=== PATIENT | female | born 1985 ===

== ENCOUNTER 2017-11-18 16:15 | Emergency (ER) | payer MEDICAID ==
[2017-11-18 16:34] VITALS: RESP 16; TEMP 98.1; O2SAT 99
--- NOTE | 2017-11-18 16:41 | ED PDOC ---
HPI: Female Pain Time Seen by Provider: 11/18/17 16:30 Chief Complaint (Nursing): Female Genitourinary History Per: Patient Onset/Duration Of Symptoms: Days (2) Current Symptoms Are (Timing): Still Present Severity: Mild Quality Of Discomfort: Cramping Associated Symptoms: denies: Nausea, Vomiting, Diarrhea, Urinary Symptoms Additional Complaint(s): Vaginal spotting assoc with lower abd cramping x 2 days. LMP July 2017 but spotted in August Ab1 Abnormal Vaginal Bleeding: Yes Past Medical History Vital Signs: Last Vital Signs Temp 98.1 F 11/18/17 16:32 Pulse 98 H 11/18/17 16:32 Resp 16 11/18/17 16:32 BP 112/69 11/18/17 16:32 Pulse Ox 99 11/18/17 16:32 - Medical History PMH: Anemia - Family History Family History: States: Unknown Family Hx - Immunization History Hx Tetanus Toxoid Vaccination: Yes Hx Influenza Vaccination: Yes Hx Pneumococcal Vaccination: Yes - Home Medications Home Medications: Ambulatory Orders Medication Instructions Recorded Vit No.126/Iron/Folic 1 tab PO DAILY 04/28/16 [Classic Tablet] Ibuprofen [Motrin Tab] 600 mg PO Q6 PRN #30 tab 04/30/16 - Allergies Allergies/Adverse Reactions: Allergies Allergy/AdvReac Type Severity Reaction Status Date / Time Latex, Natural Rubber Allergy RASH Verified 11/18/17 16:32 mayonaisse Allergy Intermediate SHORTNESS Uncoded 11/18/17 16:32 OF BREATH Review of Systems Constitutional: Negative for: Fever Gastrointestinal: Positive for: Abdominal Pain Genitourinary Female: Positive for: Vaginal Bleeding Physical Exam - Physical Exam Appears: Positive for: Non-toxic, No Acute Distress Gastrointestinal/Abdominal: Positive for: Bowel Sounds, Soft, Tenderness ( Suprapubic) Pelvic Exam: Positive for: External Exam Normal. Negative for: Blood, Mass, Tender Adnexa, Tender Uterus - Laboratory Results Result Diagrams: 11/18/17 15:50 11/18/17 15:50 - ECG O2 Sat by Pulse Oximetry: 99 Disposition - Clinical Impression Clinical Impression: Threatened miscarriage - Patient ED Disposition Is Patient to be Admitted: No - Disposition Referrals: [facility] [Outside] Disposition: Routine/Home Disposition Time: 18:02 Condition: FAIR Instructions: Threatened Miscarriage Forms: [employer] (Italian)
[2017-11-18 17:08] LABS: BASO % 0.3 % (0.0-2.0); EOS % 0.2 % (0.0-4.0); HEMOGLOBIN 12.6 g/dL (12.0-16.0); LYMPH # 0.6 K/uL (1.0-4.3); LYMPH % 11.9 % (20.0-40.0); MEAN CELL VOLUME 88.6 fl (81.0-99.0); MEAN CORPUSCULAR HEMOGLOBIN 29.5 pg (27.0-31.0); MEAN CORPUSCULAR HGB CONC 33.3 g/dL (33.0-37.0); MEAN PLATELET VOLUME 8.8 fl (7.2-11.7); MONO # 0.4 K/uL (0.0-0.8); MONO % 7.3 % (0.0-10.0); NEUT % 80.3 % (50.0-75.0); RBC 4.26 Mil/uL (3.80-5.20); RED CELL DISTRIBUTION WIDTH 12.7 % (11.5-14.5)
[2017-11-18 17:16] LABS: ALB/GLOB RATIO 1.1 (1.0-2.1); ALBUMIN 3.9 g/dL (3.5-5.0); ALT/SGPT 23 U/L (9-52); AST/SGOT 18 U/L (14-36); BLOOD UREA NITROGEN 13 mg/dl (7-17); GFR NON-AFRICAN AMERICAN > 60
--- NOTE | 2017-11-18 17:57 | US ---
Date of service: 11/18/17 OB , limited Indication: Rule out ectopic Comparison: OB 1st trimester OB ultrasound Technique: Transabdominal pelvic ultrasound Findings: Examination limited by bowel gas. There is a single intrauterine fetus present. The gestational sac measures 6.0 cm and is out of range for gestational age calculation. Yolk sac is not visualized. The crown-rump length measures 6.5 cm and is compatible with a gestational age of 12 weeks 6 days. Cervix length measures approximately 4.2 cm. There is heart motion which measured 157 BPM. Bilateral ovaries were not visualized. Impression: Limited study. Live single intrauterine with estimated gestational age 12 weeks 6 days by crown-rump length calculation. heart rate 157 bpm. Advise an anomaly screen at 16-18 weeks gestational age
[2017-11-18 18:37] VITALS: BP 115/80; PULSE 75
== END 2017-11-18 18:37 | disposition home or self-care (01) ==
LOC: H.ER 16:15
DX: O20.0 Threatened abortion (principal); Z3A.12 12 weeks gestation of pregnancy

== ENCOUNTER 2018-01-10 19:41 | Emergency (ER) | payer MEDICAID ==
--- NOTE | 2018-01-10 21:11 | OBHP ---
Datetime: 01/10/2018 20:24 IP Adm Impression: , intrauterine IP Admit Plan: Observation/Evaluation Admit Comment, IP Provider: 32 y/o @ 20 wks w/JERRY of 05/30/2018 is c/o decreased movemen t since Wednesday. Patient reports usually feeling baby move daily for the past 2 wks. She also endorses some nausea, but has been able to tolerate food. She denied any vb, ctx or loss of fluid. She denied any headache, dizziness, blurred vision, cp, shortness of breath or dysuia. OBGYNhx: x 4 1 miscarriage PMH: anemia Famhx: grandma- diabetes, no famhx of cancer Sochx: Denies tobacco, EtOH or drugs Allergies: Mayonnaise- hives; no allergies to meds Meds: PNV ROS: 12 points reviewed and negative unless otherwise states VS: 105/63, 85bpm, RR-16 Gen:laying in bed breathing comfortably Cardio: s1 s2 RRR Lungs: Resp effort wnl, no wheeze Abd: Gravid, BS + FHR-140's EXT: calves nontender A/P: 32 y/o @ 20 wks w/JERRY of 05/30/2018 is c/o decreased movement. -If NST is reactive, patient will be discharged home. -ER precautions given. Patient seen and examined with Dr. Holm -Cris Santos, , PGY-[address] Holm: I have evaluated the patient independently and I agree with the above Extremities - PN: Normal Abdomen - PN: Normal Lungs - PN: Normal Heart - PN: Normal General - PN: Normal Gestation - Est Wks by US: 20.0 Vital Signs Provider: Reviewed; Within Normal Limits IP Chief Complaint: Decreased movement
--- NOTE | 2018-01-10 21:14 | OBDCSUM ---
Datetime: 01/10/2018 20:45 Discharged to, Provider: Home Follow up at, Provider: Dr. Elliott Disch Instr Activity: Normal activity Disch Instr Diet: Regular Discharge Instructions, Provider: Routine instructions given Discharge Time: 01/10/2018 20:45 Follow up in weeks, Provider: Next visit Disch Referrals: None Contraception discussed, Prov: No Discharge Diagnosis Prov Other: decreased movement
[2018-01-11 08:24] VITALS: BP 105/63; PULSE 85
== END 2018-01-10 20:45 | disposition home or self-care (01) ==
LOC: H.EROB2 19:41
DX: O36.8131 Decreased fetal movements, third trimester, fetus 1 (principal); Z3A.20 20 weeks gestation of pregnancy